=== PATIENT | male | born 1980 | race Hispanic/Latino ===

== ENCOUNTER 2020-09-30 06:34 | Day surgery (SDC) | payer OTHER ==
[2020-09-26 12:19] LABS: Absolute Lymphocytes (CBC) 2.5 K/uL (0.7-4.9); Hematocrit 44.4 % (39.6-49.0); Lymphocytes % 30.6 % (15.3-44.8); RBC Red Blood Cell Count 5.19 M/uL (4.33-5.43)
[2020-09-26 12:39] LABS: ALT/SGPT 77 U/L (12-78); AST/SGOT 32 U/L (15-37); Albumin 4.1 g/dL (3.4-5.0); Alkaline Phosphatase 90 U/L (45-117); Amylase 23 U/L (25-115); BUN Blood Urea Nitrogen 14 mg/dL (7-18); Bicarbonate 27 mmol/L (21-32); Bilirubin Direct < 0.1 mg/dL (0-0.2); Bilirubin Total 0.5 mg/dL (0.2-1.0); Glucose Level 166 mg/dL (74-106); Lipase 86 U/L (73-393); Potassium 4.5 mmol/L (3.5-5.1); Protein, Total 8.3 g/dL (6.4-8.2); Sodium Level 142 mmol/L (136-145)
--- NOTE | 2020-09-26 12:39 | RAD REPORT ---
EXAM DESCRIPTION: Alexandra Lewis (2 Views)09/26/2020 12:32 pm CLINICAL HISTORY: Preop for gallbladder surgery COMPARISON: 2014 FINDINGS: The lungs appear clear of acute infiltrate. The heart is normal size IMPRESSION: No acute abnormalities displayed
--- NOTE | 2020-09-27 07:49 | EKG ---
Test Date: 2020-09-26 Test Time: 10:55:52 Building Operator: JAYA MEASUREMENT RESULTS: Intervals: Rate: 82 ND: 136 QRSD: 80 QT: 368 QTc: 429 [place]: P: 56 ND: 136 QRS: 22 T: 21 INTERPRETIVE STATEMENTS: Normal sinus rhythm Normal ECG No previous ECG available for comparison Electronically Signed On 09-27-20 07:46:33 CDT by Adria Pardo
[2020-09-30] MEDS ORDERED: NA CHLORIDE 0.9% 1,000 ML ONE (07:15)
[2020-09-30] MEDS ORDERED: propofoL 200 MG/20 ML VIAL IV ONE (07:30)
[2020-09-30] MEDS ORDERED: FENTANYL CITR 250 MCG/5 ML ONE (07:31)
[2020-09-30] MEDS ORDERED: GLYCOPYRROLATE 0.2 MG/ML SYR ONE (07:31)
[2020-09-30] MEDS ORDERED: MIDAZOLAM HCL 2 MG/2 ML INJ ONE (07:31)
[2020-09-30] MEDS ORDERED: ROCURONIUM 50 MG/5 ML VIAL IV ONE (07:33)
[2020-09-30] MEDS ORDERED: ONDANSETRON 4 MG/2 ML VIAL ONE (07:33)
[2020-09-30] MEDS ORDERED: LIDOCAINE 2% MPF 5 ML VIAL ONE (07:39)
[2020-09-30] MEDS: CIPROFLOXACIN 400mg IV 400 MG/200 ML BAG IV ONE ×2 (07:40→07:45)
--- NOTE | 2020-09-30 08:17 | P.BOP ---
Preoperative diagnosis: Symptomatic cholelithiasis, acute cholecystitis Postoperative diagnosis: same Primary procedure: Laparoscopic cholecystectomy Market Superintendent: ART HINOJOSA (JEWELRY CUTTER) Estimated blood loss: <10cc Specimen: gb Findings: as above Anesthesia: General Complications: None Transferred to: Recovery Room Condition: Good
[2020-09-30] MEDS ORDERED: EPHEDRINE SULF 50 MG/ML VIAL ONE (08:25)
[2020-09-30 08:51] VITALS: O2SAT 95
[2020-09-30] MEDS ORDERED: HYDROMORPHONE HCL 1 MG/ML INJ ONE (09:01)
[2020-09-30] MEDS ORDERED: CODEINE 30MG/APAP 300MG TAB ONE (10:02)
[2020-09-30 10:15] VITALS: BP 130/83; TEMP 97.4
--- NOTE | 2020-09-30 12:18 | DS ---
Date of Discharge: 09/30/2020 Diagnosis: Symptomatic cholelithiasis. Procedure: Laparoscopic cholecystectomy. Disposition: Home. Activity: As tolerated. No heavy lifting. Plan: Follow in my office in 1 week. Call for appointment at [phone]. Keep area dry for 48 hours, then may shower. Keep Steri-Strips intact. Medications: Include Cipro 500 p.o. q.12 and Tylenol No.3 q.4 hours p.r.n. pain. BRYNN/DORENE Voice ID: [id number] Report ID: [id number]
--- NOTE | 2020-09-30 12:18 | OP ---
Date of Procedure: 09/30/2020 Surgeon: Josr Martinez MD Marketing Engineer: Katharina Curry. Preoperative Diagnosis: Symptomatic cholelithiasis. Postoperative Diagnosis: Symptomatic cholelithiasis. Procedure: Laparoscopic cholecystectomy. Estimated Blood Loss: Less than 10 mL. Specimen: Gallbladder. Anesthesia: General plus local. Indication: This is the case of a male, who comes to us with above diagnosis. Fully explained the b enefits, alternatives, and risks of laparoscopic possible open cholecystectomy, which include, but no t limited to infection, bleeding, damage to adjacent structures, anesthesia complication, choledochol ithiasis, bile leak, pancreatitis, MT, and even . He also understands this may not relieve any symptoms. He might need more than one surgical intervention. He understood, signed a consent. Procedure In Detail: The patient was brought to the operating room, placed in supine position. Anes thesia was done without complication. Abdominal area was prepped and draped in usual sterile fashion . Marcaine 0.5% was injected for local anesthetic after time-out. An incision was made in the infra umbilical region. Incision was carried down to fascia, which was opened under direct vision. Perito neum was encountered, opened under direct vision. Vicryl #1 placed inside the fascia. Graciela trocar was carefully introduced. Pneumoperitoneum was obtained. I placed 3 more trocars, 5 mm each one of them in the right upper quadrant under direct visualization. This allowed me to put a grasper in th e fundus of the gallbladder and another grasper in the infundibulum retracting the gallbladder in the inferolateral fashion, exposing the triangle of Calot and obtaining critical view. Cystic duct and cystic artery were clearly isolated, freed circumferentially and a connection between those and the g allbladder were clearly identified. I proceeded to ligate those by using at least 3 clips proximal, 1 clip distal, ligation in middle. Same was done with the cystic artery. No bile leak. No bleeding . The gallbladder was removed from liver using Bovie cauterizer and removed from abdominal cavity us ing EndoCatch through the umbilical incision. The area was inspected once again. No bile leak. No bleeding. At that moment, I proceeded to remove the trocars under direct vision. Deflated pneumoper itoneum, closed the fascia with #1 Vicryl. Irrigated subcutaneous tissue, closed with 3-0 chromic an d skin in subcuticular fashion with 3-0 chromic and Steri-Strips on top. Sponge count, instrument co unts correct. The patient tolerated the procedure well. The patient was sent to Recovery in stable condition. BRYNN/DORENE Voice ID: [id number] Report ID: [id number]
== END 2020-09-30 10:10 | disposition home or self-care (01) ==
LOC: OR 06:34
PROVIDERS: ATTEND Surgery
PROC: 0FT44ZZ Resection of Gallbladder, Percutaneous Endoscopic Approach (ICD-10-PCS; principal; 2020-09-30 07:30)
DX: K80.10 Calculus of gallbladder with chronic cholecystitis without obstruction (principal); Z20.822 Contact with and (suspected) exposure to COVID-19; E11.9 Type 2 diabetes mellitus without complications
CPT/HCPCS: 93005; 85025; 80048; 36415; 82150; 82947 ×2; 80076; 88304; 83690; 71046; 47562; U0003; J2704; J2250; J3010; J1170; J7030; J2405; J0744